=== PATIENT | male | born 1990 | race African-American/Black ===

== ENCOUNTER 2018-03-13 07:06 | Emergency (ER) | payer BC ==
[~2018-03-13] VITALS: Ht 170.2 cm; Wt 72.6 kg
[2018-03-13 07:44] LABS: ABSOLUTE NEUTROPHILS 2.8 thou/uL (1.4-8.2); BASOPHILS 0.9 % (0.0-2.0); EOSINOPHILS 2.4 % (0.0-3.0); HEMATOCRIT 47.9 % (42.0-52.0); HEMOGLOBIN 16.3 gm/dL (14.0-18.0); LYMPHOCYTES 33.8 % (24.0-44.0); MCH 29.1 pg (26.0-34.0); MCV 85.5 fL (80.0-100.0); MONOCYTES 6.7 % (1.0-8.0); PLATELET COUNT 181 thou/uL (150-400); POLYS 56.2 % (36.0-66.0); RDW 13.3 % (10.5-14.5); WBC 4.9 thou/uL (4.0-11.0)
[2018-03-13 07:53] LABS: CREATININE 1.4 mg/dL (0.7-1.3); POTASSIUM 3.9 mmol/L (3.5-5.1)
[2018-03-13 07:58] LABS: ALBUMIN 3.5 g/dL (3.4-5.0); TOTAL BILIRUBIN 0.5 mg/dL (<0.1-1.0); TOTAL PROTEIN 7.9 g/dL (6.4-8.2)
[2018-03-13] MEDS ORDERED: BENTYL 20 MG TA20 M1 PO (09:28)
[2018-03-13] MEDS ORDERED: ZOFRAN ODT4 MG PO (09:28)
[2018-03-13 10:08] VITALS: BP 132/86
== END 2018-03-13 10:10 | disposition home or self-care (01) ==
LOC: ER 07:06
PROVIDERS: Emergency Medicine
DX: K52.9 Noninfective gastroenteritis and colitis, unspecified (principal)